=== PATIENT | female | born 1965 | race Caucasian/White ===

== ENCOUNTER 2018-05-21 15:14 | Emergency (ER) | payer OTHER ==
[~2018-05-21] VITALS: Ht 152.4 cm; Wt 98.5 kg
[~2018-05-21 15:14] MED LIST: ACTOS15 MG PO; ATROVENT 0.03%30 ML BOTH NARES; ATROVENT 0.03%30 ML NS; Acyclovir PO; Atarax,Vistaril PO; Benadryl PO; CLARITIN10 M3 PO; COUMADIN5 MG PO; CRESTOR10 MG PO; DOCOSANOL; ENPRESSE1 EACH PO; ESCITALOPRAM OX20 MG PO; FLONASE16 G1 BOTH NARES; GABAPENTIN100 MG PO; GLIPIZIDE10 MG PO; Glucotrol PO; HYDROXYZINE HCL25 MG PO; LANTUS 3 M100 UNITS/ SC; LANTUS100 UNIT/1 SQ; LISINOPRIL5 MG PO; LOVENOX100 MG/1 M SC; METFORMIN HCL500 MG PO; Neurontin PO; OYSTER SHELL C1 EAC7 PO; Oscal 500 w/Vitamin PO; PEPTO BISMOL240 ML PO; PREPARATION H O57 GM PR; Percocet 5/325,Endoc PO; Preparation H PR; TRICOR145 MG PO; Triphasil-28,Trivora PO; Tylenol Regular Stre PO; Zestril,Prinivil PO
[2018-05-21 16:55] LABS: HEMATOCRIT 34.7 % (36.0-46.0); HEMOGLOBIN 11.3 G/DL (11.9-15.5); MCH 30.2 PG (29.0-34.0); MCHC 32.6 G/DL (30.0-36.0); MCV 92.8 FL (83-99); PLATELET COUNT 313 K/uL (156-360); RBC DIS.WIDTH-CV 14.2 % (11.8-14.6); RBC DIS.WIDTH-SD 48.2 % (39-53); RED BLOOD COUNT 3.74 M/uL (3.80-5.20); WHITE BLOOD COUNT 7.4 K/uL (4.1-10.2)
[2018-05-21 17:04] LABS: CHLORIDE 110 mEq/L (99-109); POTASSIUM 4.5 mEq/L (3.7-5.4); SODIUM 143 mEq/L (136-147)
[2018-05-21 17:06] LABS: GLUCOSE 222 mg/dL (70-99)
[2018-05-21 17:10] LABS: CREATININE 1.6 mg/dL (0.6-1.3); GFR ESTIMATE (CALCULATED) 36 mL/min/
[2018-05-21 17:11] LABS: UREA NITROGEN (BUN) 34 mg/dL (9-23)
[2018-05-21 17:33] LABS: INTER. NORMALIZED RATIO 1.1
[2018-05-21] MEDS ORDERED: KEFLEX500 MG PO (17:44)
[2018-05-21 18:26] VITALS: BP 158/83
== END 2018-05-21 18:57 | disposition home or self-care (01) ==
LOC: EME 15:14
PROVIDERS: Physician Assistant
DX: L03.114 Cellulitis of left upper limb (principal); M79.602 Pain in left arm; E11.65 Type 2 diabetes mellitus with hyperglycemia; E11.22 Type 2 diabetes mellitus with diabetic chronic kidney disease; N18.9 Chronic kidney disease, unspecified; E78.5 Hyperlipidemia, unspecified; Z86.718 Personal history of other venous thrombosis and embolism; Z79.4 Long term (current) use of insulin
CPT/HCPCS: 80048; 85027; 85610; 85730; 93971; 99281; 99284

== ENCOUNTER 2018-05-30 14:40 | Inpatient (IN) | payer OTHER ==
[~2018-05-30] VITALS: Ht 160 cm; Wt 97.8 kg
[~2018-05-30 14:40] MED LIST changes: +KEFLEX500 MG PO; -LANTUS 3 M100 UNITS/ SC; +LANTUS 3 M100 UNITS1 SC
[2018-05-30 16:10] LABS: HEMATOCRIT 35.5 % (36.0-46.0); HEMOGLOBIN 11.4 G/DL (11.9-15.5); MCH 29.8 PG (29.0-34.0); MCHC 32.1 G/DL (30.0-36.0); MCV 92.9 FL (83-99); PLATELET COUNT 329 K/uL (156-360); RBC DIS.WIDTH-CV 14.3 % (11.8-14.6); RBC DIS.WIDTH-SD 48.5 % (39-53); RED BLOOD COUNT 3.82 M/uL (3.80-5.20); WHITE BLOOD COUNT 5.6 K/uL (4.1-10.2)
[2018-05-30 16:21] LABS: APPEARANCE CLEAR ((CLEAR)); BILIRUBIN NEGATIVE; BLOOD NEGATIVE; COLOR STRAW ((YELLOW)); GLUCOSE (STRIP) NEGATIVE; KETONES NEGATIVE; LEUKOCYTES SMALL; NITRITE NEGATIVE; PROTEIN (STRIP) NEGATIVE; SPECIFIC GRAVITY 1.011 (1.000-1.030); UROBILINOGEN 0.2 MG/DL (0.2-1.0)
[2018-05-30 16:28] LABS: CHLORIDE 107 mEq/L (99-109); POTASSIUM 4.2 mEq/L (3.7-5.4); SODIUM 140 mEq/L (136-147)
[2018-05-30 16:30] LABS: GLUCOSE 142 mg/dL (70-99)
[2018-05-30 16:34] LABS: CREATININE 1.6 mg/dL (0.6-1.3); GFR ESTIMATE (CALCULATED) 36 mL/min/
[2018-05-30 16:34] LABS: BACTERIA NONE SEEN /HPF; EPITHELIAL CELLS RARE /HPF; MUCUS NONE SEEN /LPF; RED BLOOD CELLS 0-5 /HPF (0-5)
[2018-05-30 16:35] LABS: UREA NITROGEN (BUN) 23 mg/dL (9-23)
[2018-05-30 16:38] LABS: AMPHETAMINE NEGATIVE (500 ng/mL); BARBITURATES NEGATIVE (200 ng/mL); BENZODIAZEPINES PRESUMPTIVE POSITIVE (150 ng/mL); BUPRENORPHINE NEGATIVE (10 ng/mL); COCAINE NEGATIVE (150 ng/mL); METHADONE NEGATIVE (200 ng/mL); METHAMPHETAMINE NEGATIVE (500 ng/mL); OPIATES (MORPHINE) NEGATIVE (100 ng/mL); OXYCODONE NEGATIVE (100 ng/mL); PHENCYCLIDINE NEGATIVE (25 ng/mL); PROPOXYPHENE NEGATIVE (300 ng/mL); THC CANNABINOIDS NEGATIVE (50 ng/mL); TRICYCLIC ANTIDEPRESSANTS PRESUMPTIVE POSITIVE (300 ng/mL)
[2018-05-30 16:43] LABS: QUANTITATIVE HCG < 4.0 MIU/ML
[2018-05-30 17:08] LABS: BENZODIAZEPINES, URINE SCREEN Negative (200 ng/mL)
[2018-05-30] MEDS ORDERED: KEFLEX500 MG PO (18:27)
[2018-05-30] MEDS ORDERED: IPRATROPIUM BRO30 ML BOTH NARES (18:28)
[2018-05-30] MEDS ORDERED: LYRICA100 MG PO (18:29)
[2018-05-30 18:30] VITALS: BP 152/73
[2018-05-30] MEDS ORDERED: NEOSPORIN + P28.3 GM TP (18:30)
[2018-05-30] MEDS ORDERED: ZOVIRAX400 MG PO (18:31)
[2018-05-30] MEDS ORDERED: TYLENOL EXTRA500 MG PO (18:31)
[2018-05-30] MEDS ORDERED: ABREVA2 GM TP (18:31)
[2018-05-30] MEDS ORDERED: CALCIUM 500 +1 EAC5 PO (18:33)
[2018-05-30] MEDS ORDERED: ECONAZOLE NITRA15 GM TP (18:33)
[2018-05-30] MEDS ORDERED: SUDOGEST30 MG PO (18:34)
[2018-05-30] MEDS ORDERED: VOLTAREN 1% GE100 GM TP (18:35)
[2018-05-30] MEDS ORDERED: ELAVIL25 MG PO (18:36)
[2018-05-30] MEDS ORDERED: LIPITOR20 MG PO (18:36)
[2018-05-30] MEDS ORDERED: PRILOSEC20 MG PO (18:36)
[2018-05-30] MEDS ORDERED: ACTOS15 MG PO (18:37)
[2018-05-30] MEDS ORDERED: TOPAMAX50 MG PO (18:37)
[2018-05-30] MEDS ORDERED: VITAMIN C500 M1 PO (18:37)
[2018-05-30] MEDS ORDERED: DIABETIC TUSSI118 ML PO (18:38)
[2018-05-30] MEDS ORDERED: ZESTRIL10 MG PO (18:39)
[2018-05-30] MEDS ORDERED: PREPARATION H C51 G1 PR (18:40)
[2018-05-30] MEDS ORDERED: MILK OF MAGN PO (18:40)
[2018-05-30] MEDS ORDERED: BENADRYL25 MG PO (18:40)
[2018-05-30] MEDS ORDERED: COLACE100 MG PO (18:40)
[2018-05-30] MEDS ORDERED: BYDUREON2 MG SC (18:41)
[2018-05-30] MEDS ORDERED: GLUCOTROL10 MG PO (18:41)
[2018-05-30] MEDS ORDERED: NYSTATIN15 GM TP (18:42)
[2018-05-30 18:52] VITALS: BP 152/73
[2018-05-31 09:21] VITALS: BP 115/74
[2018-05-31 16:04] VITALS: BP 132/72
[2018-05-31 22:39] VITALS: BP 164/79
[2018-05-31 22:56] LABS: HEMATOCRIT 35.6 % (36.0-46.0); HEMOGLOBIN 11.9 G/DL (11.9-15.5); MCH 30.5 PG (29.0-34.0); MCHC 33.4 G/DL (30.0-36.0); MCV 91.3 FL (83-99); PLATELET COUNT 346 K/uL (156-360); RBC DIS.WIDTH-CV 14.2 % (11.8-14.6); RBC DIS.WIDTH-SD 47.6 % (39-53); WHITE BLOOD COUNT 7.6 K/uL (4.1-10.2)
[2018-05-31 23:04] LABS: CHLORIDE 103 mEq/L (99-109); POTASSIUM 3.6 mEq/L (3.7-5.4); SODIUM 143 mEq/L (136-147)
[2018-05-31 23:07] LABS: GLUCOSE 104 mg/dL (70-99)
[2018-05-31 23:09] LABS: CREATININE 1.6 mg/dL (0.6-1.3); GFR ESTIMATE (CALCULATED) 36 mL/min/
[2018-05-31 23:10] LABS: UREA NITROGEN (BUN) 33 mg/dL (9-23)
[2018-06-01 07:38] VITALS: BP 125/62
[2018-06-01 16:13] VITALS: BP 119/71; BP 123/60
[2018-06-02 07:39] VITALS: BP 157/70
[2018-06-02 09:20] LABS: FOLIC ACID (FOLATE) 13.7 NG/ML (5.0-22.0)
[2018-06-02 10:32] LABS: HEMOGLOBIN A1c (GLYCOHEMOGLOB) 6.5 % (Below 5.7)
[2018-06-02 15:10] VITALS: BP 143/78
[2018-06-03 07:42] VITALS: BP 135/64
[2018-06-03 15:15] VITALS: BP 130/77
[2018-06-04 07:39] VITALS: BP 123/71
[2018-06-04 16:20] VITALS: BP 136/73
[2018-06-05 00:01] VITALS: BP 139/67
[2018-06-05 07:44] VITALS: BP 152/82
[2018-06-05] MEDS ORDERED: ARIPIPRAZOLE10 MG PO (09:31)
[2018-06-05] MEDS ORDERED: LEVEMIR100 UNIT/2 SC (09:31)
[2018-06-05] MEDS ORDERED: TOPAMAX50 MG PO (11:18)
== END 2018-06-05 14:11 | disposition home or self-care (01) | DRG 885 ==
LOC: EME 14:40 → EDOF 16:31 → 1WEST 16:31 → ENRESERV 18:00 → 1WEST 18:23
PROVIDERS: Hospitalist; Physician Assistant; Psychiatry & Neurology Psychiatry
DX: F20.9 Schizophrenia, unspecified (principal); E11.649 Type 2 diabetes mellitus with hypoglycemia without coma; T38.3X5A Adverse effect of insulin and oral hypoglycemic [antidiabetic] drugs, initial encounter; J32.9 Chronic sinusitis, unspecified; F63.9 Impulse disorder, unspecified; F32.9 Major depressive disorder, single episode, unspecified; F41.9 Anxiety disorder, unspecified; F70 Mild intellectual disabilities; E66.9 Obesity, unspecified; Z68.38 Body mass index [BMI] 38.0-38.9, adult; J30.2 Other seasonal allergic rhinitis; K59.00 Constipation, unspecified; G47.9 Sleep disorder, unspecified; I10 Essential (primary) hypertension; E78.5 Hyperlipidemia, unspecified; R42 Dizziness and giddiness
CPT/HCPCS: 80048; 81003; 82607; 82746; 82948; 83036; 84702; 84999; 85027; 87086; 90839; 97150 GO; 97165 GO; 99281; 99284